=== PATIENT | female | born 2000 | race Caucasian/White ===

== ENCOUNTER → 2018-01-13 | Outpatient (CLI) | payer OTHER ==
[~2018-01-13] MED LIST: BIOT10TA PO; LEXA20TA PO; PERC5TAB12 PO
[2018-01-13 11:28] LABS: AUTOMATED NEUTROPHIL # 3.8 TH/MM3 (1.8-7.7); BASOPHIL % 0.6 % (0.0-2.0); EOSINOPHIL # 0.1 TH/MM3 (0-0.4); EOSINOPHIL % 1.8 % (0.0-4.0); HEMOGLOBIN 12.8 GM/DL (11.6-15.3); LYMPH % 36.1 % (9.0-44.0); LYMPHOCYTE # 2.6 TH/MM3 (1.0-4.8); MEAN CELL VOLUME 85.5 FL (80.0-100.0); MEAN CORPUSCULAR HEMOGLOBIN 29.6 PG (27.0-34.0); MEAN CORPUSCULAR HGB CONC 34.6 % (32.0-36.0); MEAN PLATELET VOLUME 7.5 FL (7.0-11.0); MONO % 9.2 % (0.0-8.0); MONOCYTE # 0.7 TH/MM3 (0-0.9); NEUT % 52.3 % (16.0-70.0); PLATELET COUNT 243 TH/MM3 (150-450); RED BLOOD COUNT 4.33 MIL/MM3 (4.00-5.30); RED CELL DISTRIBUTION WIDTH 13.4 % (11.6-17.2); WHITE BLOOD COUNT 7.2 TH/MM3 (4.0-11.0)
[2018-01-13 11:42] LABS: BICARBONATE 28.4 MEQ/L (21.0-32.0); BLOOD UREA NITROGEN 10 MG/DL (7-18); CALCIUM 8.9 MG/DL (8.5-10.1); CHLORIDE 105 MEQ/L (98-107); GLOMERULAR FILTRATION RATE 129 ML/MIN (>89); GLUCOSE,FASTING 73 MG/DL (74-99); SODIUM (NA) 140 MEQ/L (136-145)
== END ==
LOC: CPRE 10:43
PROVIDERS: ATTEND Obstetrics & Gynecology
DX: R10.2 Pelvic and perineal pain (principal); N94.6 Dysmenorrhea, unspecified; N94.10 Unspecified dyspareunia; N70.11 Chronic salpingitis
CPT/HCPCS: 36415; 80048; 84703; 85025

== ENCOUNTER → 2018-01-18 | Day surgery (SDC) | payer OTHER ==
[~2018-01-18] VITALS: Ht 162.6 cm; Wt 59.0 kg
[~2018-01-18] MED LIST changes: +CHLORHEXIDINE GLUCONATE 2 % 1 PACK (2 CLOTHS) TOPICAL PRN; +DEXAMETHASONE SOD PHOS 4 MG/ML VIAL IV ONE; +DO NOT ADM ANY ANTICOAGULANT DRUGS PRN; +GLYCOPYRROLATE 1 MG/5 ML SYRINGE IV PUSH ONE; +KETOROLAC TROMETHAMINE 30 MG/ML (IVP) VIAL IV PUSH ONE; +LACTATED RINGER'S 1000 ML IV PRN; -LEXA20TA PO; +LIDOCAINE HCL 1% PF 5 ML SYRINGE OTHER ONE; +METOPROLOL TARTRATE 25 MG TAB PO PRN; +MIDAZOLAM HCL 2 MG/2 ML VIAL ONE; +NEOSTIGMINE 5 MG/5 ML SYRINGE IV PUSH ONE; +ONDANSETRON HCL 4 MG/2 ML VIAL IV ONE; +ONDANSETRON HCL 4 MG/2 ML VIAL IV PUSH PRN; +POVIDONE IODINE 5% (ANTISEPSIS KIT) 4 APPLICATIONS EACH NARE PRN; +PROPOFOL 200 MG/20 ML AMP IV ONE; +ROCURONIUM INJ 50 MG/5 ML SYRINGE IV PUSH ONE; +SODIUM CHLORID 0.9% 500 ML IV PRN; +cefTRIAXone 1 GM PREMIX INJ 50 ML IV ONE; +cefTRIAXone INJ 1,000 MG in SODIUM CHLORIDE 0.9% INJ 100 ML IV ONE; +oxyCODONE/ACETAMINOPHEN 5 MG/325 MG TAB PO PRN
[2018-01-18 10:36] VITALS: BP 114/61; PULSE 57; RESP 16; TEMP 98.6; O2SAT 100
--- NOTE | 2018-01-18 11:56 | MP ---
cc: Nhung Lerma MD DATE OF OPERATION: 01/18/2018 PREOPERATIVE DIAGNOSES: 1. Severe dysmenorrhea. 2. Dyspareunia. 3. Chronic pelvic pain. 4. Probable hydrosalpinx. POSTOPERATIVE DIAGNOSES: 1. Severe dysmenorrhea. 2. Dyspareunia. 3. Chronic pelvic pain. 4. Probable hydrosalpinx. 5. No hydrosalpinx. 6. Inflamed pelvic area. PROCEDURE: Examination under anesthesia, dilation and curettage of the uterus, hysteroscopic examination, laparoscopic examination with peritoneal biopsies x 2. ANESTHESIA: General endotracheal intubation. SURGEON: Nhung Lerma MD FINDINGS: Examination under anesthesia, vagina was clean. The cervix was small and nulliparous without lesions. There was a small amount of cervical stenosis noted. The uterus, normal size, shape and consistency and freely mobile. The adnexa negative for masses. The hysteroscopic exam revealed a normal endometrial cavity. I did not see the os. There was small amount of tissue present. The laparoscopic exam reveals an inflamed pelvis. The fallopian tubes, the uterus, the pelvic sidewalls were all inflamed with marked hypervascularity present. The uterus was normal size and shape without any lesions. The fallopian tubes were normal in length and caliber. There was no evidence of hydrosalpinx. There was a tiny hydatid cyst of Morgagni on the right side, probably 3 mm. In the posterior cul-de-sac there were 2 small lesions between the uterosacral ligaments, one that may have been endometriosis; one may have been white endometriosis. The anterior cul-de-sac was clean. The gallbladder and liver were normal. The upper abdomen was normal. COMPLICATIONS: None. COUNTS: Correct. ESTIMATED BLOOD LOSS: Minimal. Patient tolerated the procedure well, went to the recovery room in good condition. Patient was taken to the operating room, identified by name band and verbally, given a general anesthetic, carefully placed in dorsal lithotomy position, prepped and draped in the usual sterile manner for vaginal laparoscopic surgery. Timeout was taken, and the bladder was drained with an in and out cath. An examination under anesthesia was carried out with the above findings. A weighted speculum was placed in the vagina. The anterior lip of the cervix was grasped with a single-tooth tenaculum. Cervix was slowly serially dilated with care not to disrupt the collagen fibers and the hysteroscope was inserted. The entire endometrial cavity was carefully inspected. There were no polyps, submucous myomas. The hysteroscope was removed, and a gentle sharp curettage with a #1 sharp curette was performed. Hulka clamp was placed, and a small subumbilical incision was made with 5 mm trocar was inserted into the peritoneum, and then pneumoperitoneum was created with 3 L of CO2. The trocar was inserted under direct vision, and the entire pelvis was carefully inspected with the above findings. A second puncture inferolateral to the umbilicus on the left was placed with 5 mm trocar for uterine and ovarian manipulation. Again, pictures were taken. The entire pelvis looked inflamed. At this point, after taking the pictures and evaluating the pelvis, we did take 2 biopsies between the uterosacral ligaments and then used the Kleppinger forceps to coagulate those areas. At this point, the laparoscope was removed under direct vision. Air was released at the second puncture, and the incisions were repaired with a 4-0 Monocryl in a subcuticular fashion. She tolerated the procedure well, went to recovery room in good condition. She did receive Toradol in the operating theater. R. MD DARREL Edwards/ADEEL , 11:33 AM , 11:54 AM
== END | disposition home or self-care (01) ==
LOC: HSDC 05:49
PROVIDERS: ATTEND Obstetrics & Gynecology
DX: N94.6 Dysmenorrhea, unspecified (principal); N94.10 Unspecified dyspareunia; G89.29 Other chronic pain; R10.2 Pelvic and perineal pain
CPT/HCPCS: 00840; 49320; 58558; 88305; J0696; J1100; J1885; J2250; J2405; J2710; J3010; J7120